=== PATIENT | male | born 1965 | race Caucasian/White ===

== ENCOUNTER 2017-05-16 17:20 | Inpatient (IN) | payer BC ==
[~2017-05-16] VITALS: Ht 177.8 cm; Wt 85.8 kg
[~2017-05-16 17:20] MED LIST: ASPIRIN 81M81 MG/TA2 PO; ATIVAN 0.50.5 MG/TAB PO; CARDIZEM CD 24240 MG PO; LIPITOR 10MG10 MG PO; MULTI VITAMINS1 TAB PO; PRIL40 PO; SYNTHROID0.088 MG/T PO; TAMBOCOR 1100 MG/TAB PO; TIKOSYN0.5 MG PO; TOPROL XL 50MG50 MG PO; XARELTO20 MG PO
[2017-05-17] MEDS ORDERED: OCUVITE ADULT 51 SGL PO (09:56)
[2017-05-17 09:59] LABS: HEMATOCRIT 39.4 % (42.0-52.0); HEMOGLOBIN 13.1 g/dl (13.5-18.0); MEAN CELL VOLUME 83 fl (80.0-100.0); MEAN CORPUSCULAR HEMOGLOBIN 28 pg (27.0-31.0); MEAN CORPUSCULAR HGB CONC 33 g/dl (33.0-37.0); MEAN PLATELET VOLUME 9.9 fl (7.4-10.4); PLATELET COUNT 256 K/mm3 (130-400); RED BLOOD COUNT 4.77 M/mm3 (4.20-5.60); REDCELL DISTRIBUTION WIDTH-CV 13.2 % (11.5-14.5); WHITE BLOOD COUNT 4.3 K/mm3 (4.8-10.8)
[2017-05-17 10:06] LABS: ADJUSTED CALCIUM 9.3 mg/dL (8.4-10.2); BILIRUBIN,TOTAL 0.6 mg/dL (0.0-1.0); CALCIUM 9.3 mg/dL (8.4-10.2); CREATININE, serum 0.81 mg/dL (0.66-1.25); MAGNESIUM 2.1 mg/dL (1.6-2.3); POTASSIUM 4.4 mmol/L (3.4-5.0); TOTAL PROTEIN 6.7 gm/dL (6.4-8.2)
[2017-05-17 10:35] LABS: PROTHROMBIN TIME 10.8 SECONDS (9.7-12.8)
[2017-05-17 11:38] VITALS: BP 103/74; PULSE 62; TEMP 98
[2017-05-17 11:40] VITALS: BP 103/55; PULSE 64; TEMP 98
[2017-05-17 16:00] VITALS: BP 120/90; PULSE 67; TEMP 97
[2017-05-17 20:00] VITALS: BP 126/66; PULSE 66; TEMP 97.9
[2017-05-18] VITALS: BP 106/77; PULSE 65; TEMP 98
[2017-05-18 04:00] VITALS: BP 115/83; PULSE 64; TEMP 98.4
[2017-05-18 05:51] LABS: HEMATOCRIT 41.1 % (42.0-52.0); HEMOGLOBIN 13.7 g/dl (13.5-18.0); MEAN CELL VOLUME 82 fl (80.0-100.0); MEAN CORPUSCULAR HEMOGLOBIN 27 pg (27.0-31.0); MEAN CORPUSCULAR HGB CONC 33 g/dl (33.0-37.0); MEAN PLATELET VOLUME 9.4 fl (7.4-10.4); PLATELET COUNT 239 K/mm3 (130-400); RED BLOOD COUNT 5.01 M/mm3 (4.20-5.60); WHITE BLOOD COUNT 4.5 K/mm3 (4.8-10.8)
[2017-05-18 05:55] LABS: INR 1.1 (0.8-3.0); PROTHROMBIN TIME 12.6 SECONDS (9.7-12.8)
[2017-05-18 06:04] LABS: CREATININE, serum 0.81 mg/dL (0.66-1.25); MAGNESIUM 2.2 mg/dL (1.6-2.3); POTASSIUM 4.1 mmol/L (3.4-5.0)
[2017-05-18 08:00] VITALS: BP 113/90; PULSE 63; TEMP 97.6
[2017-05-18 11:44] VITALS: BP 92/63; PULSE 60; TEMP 96.9
[2017-05-18 16:00] VITALS: BP 105/78; PULSE 65; TEMP 97.6
[2017-05-18 20:00] VITALS: BP 116/83; PULSE 67; TEMP 97.3
[2017-05-19] VITALS: BP 115/86; PULSE 60; TEMP 98.3
[2017-05-19 04:00] VITALS: BP 98/67; PULSE 60; TEMP 97.6
[2017-05-19 05:28] LABS: INR 1.1 (0.8-3.0); PROTHROMBIN TIME 12.6 SECONDS (9.7-12.8)
[2017-05-19 05:34] LABS: CREATININE, serum 0.86 mg/dL (0.66-1.25); POTASSIUM 4.1 mmol/L (3.4-5.0)
[2017-05-19 08:00] VITALS: BP 104/86; PULSE 59; TEMP 97
[2017-05-19] MEDS ORDERED: XARELTO20 MG PO (11:57)
[2017-05-19] MEDS ORDERED: TIKOSYN0.5 MG PO (11:57)
[2017-05-19] MEDS ORDERED: TIKOSYN0.25 MG PO (11:58)
== END 2017-05-19 12:17 | disposition home or self-care (01) | DRG 310 ==
LOC: ICU 05-17 08:04 → MEDICAL 05-17 08:04 → ICU 05-17 14:45 → MEDICAL 05-17 17:19 → ICU 05-19 12:17
PROVIDERS: Internal Medicine Cardiovascular Disease
DX: I48.0 Paroxysmal atrial fibrillation (principal); Z95.2 Presence of prosthetic heart valve; Z95.0 Presence of cardiac pacemaker; G47.33 Obstructive sleep apnea (adult) (pediatric); Z87.891 Personal history of nicotine dependence

== ENCOUNTER 2019-08-12 11:22 | Inpatient (IN) | payer BC ==
[2019-08-12] VITALS (68 sets, daily range): BP systolic 111–118; BP diastolic 61–85; PULSE 60–85; TEMP 97.6–98; O2SAT 95–100
[~2019-08-12] VITALS: Ht 177.8 cm; Wt 90.7 kg
[~2019-08-12 11:22] MED LIST changes: +OCUVITE ADULT 51 SGL PO; +TIKOSYN0.25 MG PO
[2019-08-12] MEDS ORDERED: ASPIRIN 32325 MG/TAB PO (11:46)
[2019-08-12] MEDS ORDERED: ATROVENT INHALE14 GM IH (11:49)
[2019-08-12 12:00] LABS: BASO % 1.1 % (0.0-2.0); EOS # 0.1 (0.0-0.7); EOS % 2.7 % (0-4.0); GRAN # 2.1 (1.4-6.5); GRAN % 55.5 % (42.2-75.2); HEMATOCRIT 41.9 % (42.0-52.0); HEMOGLOBIN 13.6 g/dl (13.5-18.0); LYMPH # 1.1 (1.2-3.4); LYMPH % 30.7 % (20.0-51.0); MEAN CELL VOLUME 85 fl (80.0-100.0); MEAN CORPUSCULAR HEMOGLOBIN 27 pg (27.0-31.0); MEAN CORPUSCULAR HGB CONC 33 g/dl (33.0-37.0); MEAN PLATELET VOLUME 9.2 fl (7.4-10.4); MONO # 0.4 (0.1-0.6); MONO % 9.7 % (1.7-9.3); PLATELET COUNT 270 K/mm3 (130-400); RED BLOOD COUNT 4.96 M/mm3 (4.20-5.60); REDCELL DISTRIBUTION WIDTH-CV 14.8 % (11.5-14.5)
[2019-08-12 12:25] LABS: ALANINE AMINOTRANSFERASE 18 U/L (21-72); ALBUMIN 4.5 gm/dL (3.5-5.0); ALKALINE PHOSPHATASE 75 U/L (50-136); ANION GAP 10 mmol/L (7-16); AST,SGOT 25 U/L (15-37); BILIRUBIN,TOTAL 0.4 mg/dL (0.0-1.0); BLOOD UREA NITROGEN 25 mg/dL (9-20); CALCIUM 9.9 mg/dL (8.4-10.2); CARBON DIOXIDE 26 mmol/L (22-30); CHLORIDE 104 mmol/L (98-107); CREATININE, serum 1.01 (0.66-1.25); GLUCOSE 86 mg/dL (74-106); POTASSIUM 4.4 mmol/L (3.4-5.0); SODIUM 140 mmol/L (137-145); TOTAL PROTEIN 7.5 gm/dL (6.4-8.2)
[2019-08-12 12:41] LABS: INR 0.9 (0.8-3.0); TROPONIN-I < 0.012 ng/mL (0.000-0.035)
[2019-08-12] MEDS ORDERED: ZOLOFT 100MG100 MG PO (15:56)
[2019-08-12] MEDS ORDERED: LINZESS72 MCG PO (15:58)
--- NOTE | 2019-08-12 16:00 | NUR ---
PT AMBULATED FROM STRETCHER TO BED. DENIES PAIN, A&O X4. PT STATES THIS AM HE WAS DIZZY WHEN OUT FOR A WALK. ADDITIONALLY, HE THINKS HIS AFIB STARTED AFTER HAVING TOO MUCH CAFFINE ON 08/10.
--- NOTE | 2019-08-12 19:00 | NUR ---
REPORT GIVEN TO YEMI BRIGGS.
--- NOTE | 2019-08-12 21:28 | NUR ---
Was called by Anuradha BRAGG with [facility] regarding ABG's. Order to decrease FI02 to 30. Call placed to RT Briceño and notified. Pt is now resting comfortably. Will decrease sedation as able.
[2019-08-13] VITALS (142 sets, daily range): BP systolic 112–126; BP diastolic 72–92; PULSE 60–63; TEMP 97.2–98.4; O2SAT 96–100
[2019-08-13 05:36] LABS: EOS # 0.2 (0.0-0.7); EOS % 4.2 % (0-4.0); GRAN # 2.2 (1.4-6.5); GRAN % 56.2 % (42.2-75.2); HEMATOCRIT 38.2 % (42.0-52.0); HEMOGLOBIN 12.2 g/dl (13.5-18.0); LYMPH # 1.1 (1.2-3.4); MEAN CELL VOLUME 85 fl (80.0-100.0); MEAN CORPUSCULAR HEMOGLOBIN 27 pg (27.0-31.0); MEAN CORPUSCULAR HGB CONC 32 g/dl (33.0-37.0); MEAN PLATELET VOLUME 9.4 fl (7.4-10.4); MONO # 0.4 (0.1-0.6); MONO % 9.1 % (1.7-9.3); PLATELET COUNT 238 K/mm3 (130-400); RED BLOOD COUNT 4.51 M/mm3 (4.20-5.60); REDCELL DISTRIBUTION WIDTH-CV 14.8 % (11.5-14.5)
[2019-08-13 05:50] LABS: CALCIUM 8.5 mg/dL (8.4-10.2); CREATININE, serum 0.83 (0.66-1.25); POTASSIUM 4.3 mmol/L (3.4-5.0)
[2019-08-13 06:02] LABS: MAGNESIUM 2.1 mg/dL (1.6-2.3)
--- NOTE | 2019-08-13 10:11 | NUR ---
Initial visit; Patient thanked Office Messenger for looking in on him and offering God's blessings.
--- NOTE | 2019-08-13 13:20 | NUR ---
GAVE REPORT TO YEMI AGUILERA.
--- NOTE | 2019-08-13 18:00 | NUR ---
PT HAD UNEVENTFUL AFTERNOON. NO ISSUES OR CONSERNS VOICED. VITALS HAVE BEEN WNL, NO CONSERNS VOICED FROM LOAD OUT WORKER THIS SHIFT.
--- NOTE | 2019-08-13 20:30 | NUR ---
Patient assessed at this time. Alert and oriented x 4, and able to make needs known. Denies having pain and discomfort. Peripheral IV to left AC flushed. Site is without redness, warmth, swelling, and pain. Denies having SOB and dyspnea. LS CTA. Respirations even and unlabored. Denies chest pain and discomfort. HRR. Telemetry in place-paced. Cap refill < 3 sec. Non-tenting skin turgor. BSAx4. No edema noted. Resting in bed with call light within reach. Voices no questions, needs, or concerns at this time.
[2019-08-14 03:36] VITALS: BP 121/80; PULSE 64; TEMP 97.8
--- NOTE | 2019-08-14 05:11 | NUR ---
Patient has denied having pain and discomfort this shift. Telemetry monitoring remains in place. Denies chest pain and discomfort. HR has been around 60. Voices no questions, needs, or concerns. Resting in bed with eyes closed at this time. Call light is within reach.
[2019-08-14 08:05] VITALS: BP 108/72; PULSE 62
[2019-08-14 08:17] LABS: BASO % 0.8 % (0.0-2.0); EOS # 0.2 (0.0-0.7); EOS % 4.8 % (0-4.0); GRAN # 2.1 (1.4-6.5); HEMATOCRIT 41.2 % (42.0-52.0); HEMOGLOBIN 13.5 g/dl (13.5-18.0); LYMPH % 26.8 % (20.0-51.0); MEAN CELL VOLUME 85 fl (80.0-100.0); MEAN CORPUSCULAR HEMOGLOBIN 28 pg (27.0-31.0); MEAN CORPUSCULAR HGB CONC 33 g/dl (33.0-37.0); MEAN PLATELET VOLUME 9.2 fl (7.4-10.4); MONO # 0.3 (0.1-0.6); MONO % 7.3 % (1.7-9.3); PLATELET COUNT 258 K/mm3 (130-400); RED BLOOD COUNT 4.87 M/mm3 (4.20-5.60); REDCELL DISTRIBUTION WIDTH-CV 14.6 % (11.5-14.5)
[2019-08-14 08:26] LABS: CALCIUM 9.1 mg/dL (8.4-10.2); CREATININE, serum 0.8 (0.66-1.25); POTASSIUM 4.3 mmol/L (3.4-5.0)
[2019-08-14 08:30] LABS: INR 0.9 (0.8-3.0); PROTHROMBIN TIME 10.8 SECONDS (9.7-12.8)
--- NOTE | 2019-08-14 09:29 | NUR ---
Assessment completed, alert/oriented, vital signs stable, denies chest pain or discomfort, heart RRR/ paced on tele., Qtc 483 this morning/ Sotalol dose given, patient is hopeful to discharge home once Cardiology makes their rounds, present, denies other needs at this time
--- NOTE | 2019-08-14 10:49 | NUR ---
UCHE met with the patient and the patient's family to discuss discharge plan. The patient lives in [place] with his , Lisa (ph#[phone]). He reports independence with ADLs and does not have any DME. The patient's PCP is Dr. Ambar Clay in [place] and he receives his medications at a [facility] in [place]. He reports no difficulties obtaining his meds. The patient does not have advanced directives in EMR, but he states that he does have them completed. He states that his DPOA-HC is his son, Scot Costa. The patient plans to return home with his upon discharge. No additional needs at this time.
[2019-08-14 11:38] VITALS: BP 121/80; PULSE 70; TEMP 98.1
[2019-08-14] MEDS ORDERED: BETAPACE 80MG80 MG PO (12:02)
[2019-08-14] MEDS ORDERED: COUMADIN 5MG5 MG/TAB PO (12:02)
--- NOTE | 2019-08-14 13:46 | NUR ---
Discharge instructions reviewed with patient and his , instructed to follow up with Cardiology and PCP as we have scheduled, isntructed to get Pt-INR check with PCP on 08/16, Coumadin and Sotalol scripts sent to pharmacy for him, education given on these meds, IV and tele removed, he is ambulatory and leaving with his / I escorted them to the door
== END 2019-08-14 13:48 | disposition home or self-care (01) | DRG 310 ==
LOC: COL.ER 11:22 → ICU 14:09 → MEDICAL 08-13 13:41
PROVIDERS: Emergency Medicine; Nurse Practitioner Family; ADMIT Student in an Organized Health Care Education/Training Program
DX: I48.20 Chronic atrial fibrillation, unspecified (principal); D72.819 Decreased white blood cell count, unspecified; E03.9 Hypothyroidism, unspecified; R12 Heartburn; F41.9 Anxiety disorder, unspecified; Z95.0 Presence of cardiac pacemaker; Z95.3 Presence of xenogenic heart valve; Z79.82 Long term (current) use of aspirin; Z79.890 Hormone replacement therapy; Z87.891 Personal history of nicotine dependence
CPT/HCPCS: OP; 99232-AI; 99239; J1650; J7030

== ENCOUNTER 2021-03-30 17:36 | Inpatient (IN) | payer BC ==
[2006-03-11 16:13] VITALS: BP 104/72
[~2021-03-30] VITALS: Ht 177.8 cm; Wt 90.9 kg
[~2021-03-30 17:36] MED LIST changes: +ASPIRIN 32325 MG/TAB PO; +ATROVENT INHALE14 GM IH; +BETAPACE 80MG80 MG PO; +COUMADIN 5MG5 MG/TAB PO; +LINZESS72 MCG PO; +ZOLOFT 100MG100 MG PO
[2021-03-30 18:09] LABS: BASO # 0.1 (0.0-0.2); BASO % 0.9 % (0.0-2.0); EOS # 0.2 (0.0-0.7); EOS % 3.1 % (0-4.0); GRAN # 3.4 (1.4-6.5); GRAN % 60.1 % (42.2-75.2); HEMATOCRIT 41.1 % (42.0-52.0); HEMOGLOBIN 13.8 g/dl (13.5-18.0); LYMPH # 1.6 (1.2-3.4); LYMPH % 27.8 % (20.0-51.0); MEAN CELL VOLUME 84 fl (80.0-100.0); MEAN CORPUSCULAR HEMOGLOBIN 28 pg (27.0-31.0); MEAN CORPUSCULAR HGB CONC 34 g/dl (33.0-37.0); MEAN PLATELET VOLUME 9.1 fl (7.4-10.4); MONO # 0.5 (0.1-0.6); MONO % 7.9 % (1.7-9.3); PLATELET COUNT 294 K/mm3 (130-400); RED BLOOD COUNT 4.88 M/mm3 (4.20-5.60); REDCELL DISTRIBUTION WIDTH-CV 12.9 % (11.5-14.5)
[2021-03-30] MEDS ORDERED: ASPIRIN 32325 MG/TAB PO (18:13)
[2021-03-30 18:19] LABS: ALANINE AMINOTRANSFERASE 29 U/L (4-49); ALBUMIN 4.2 gm/dL (3.5-5.0); ALKALINE PHOSPHATASE 68 U/L (50-136); ANION GAP 7 mmol/L (7-16); AST,SGOT 26 U/L (15-37); BILIRUBIN,TOTAL 0.4 mg/dL (0.0-1.0); BLOOD UREA NITROGEN 26 mg/dL (9-20); CALCIUM 9.3 mg/dL (8.4-10.2); CARBON DIOXIDE 22 mmol/L (22-30); CHLORIDE 106 mmol/L (98-107); GLUCOSE 139 mg/dL (74-106); POTASSIUM 3.6 mmol/L (3.4-5.0); SODIUM 135 mmol/L (137-145)
[2021-03-30 18:20] LABS: INR 0.9 (0.8-3.0); PROTHROMBIN TIME 10.2 SECONDS (9.7-12.8)
[2021-03-30 18:22] LABS: PARTIAL THROMBOPLASTIN TIME 27.8 SECONDS (26.0-37.0)
[2021-03-30 18:30] LABS: TROPONIN-I < 0.012 ng/mL (0.000-0.035)
[2021-03-30 20:30] VITALS: BP 135/104; PULSE 94; TEMP 98.1
[2021-03-30 23:50] VITALS: BP 111/70; PULSE 64; TEMP 97.7
[2021-03-31] VITALS (14 sets, daily range): BP systolic 112–122; BP diastolic 68–88; PULSE 59–74; TEMP 97.6–98
[2021-03-31] MEDS ORDERED: LIPITOR 10MG10 MG PO (03:42)
[2021-03-31 06:28] LABS: BASO % 1.2 % (0.0-2.0); EOS # 0.2 (0.0-0.7); EOS % 5.2 % (0-4.0); GRAN # 1.5 (1.4-6.5); LYMPH # 1.4 (1.2-3.4); LYMPH % 40.6 % (20.0-51.0); MEAN CELL VOLUME 85 fl (80.0-100.0); MEAN CORPUSCULAR HGB CONC 33 g/dl (33.0-37.0); MEAN PLATELET VOLUME 9.3 fl (7.4-10.4); MONO # 0.3 (0.1-0.6); PLATELET COUNT 246 K/mm3 (130-400); RED BLOOD COUNT 4.21 M/mm3 (4.20-5.60)
[2021-03-31 06:41] LABS: HEMATOCRIT 35.9 % (42.0-52.0); HEMOGLOBIN 11.8 g/dl (13.5-18.0); MEAN CORPUSCULAR HEMOGLOBIN 28 pg (27.0-31.0)
--- NOTE | 2021-03-31 06:43 | NUR ---
ROYA JOHNSON NOTIFIED OF HEMOGLOBIN LEVEL OF 11.8.
[2021-03-31 06:45] LABS: CALCIUM 8.6 mg/dL (8.4-10.2); CREATININE, serum 0.75 (0.66-1.25); POTASSIUM 3.8 mmol/L (3.4-5.0)
--- NOTE | 2021-03-31 11:42 | NUR ---
Initial visit; Patient and his thanked Personnel Associate for looking in on him and offering God's blessings and for being available for so many people.
--- NOTE | 2021-03-31 18:06 | NUR ---
Patient resting in bed, at bedside. Patient is alert and oriented, answers questions appropriately. Patient is independent in his room, and denies pain. Telemetry in place per order. Call light within reach.
--- NOTE | 2021-04-01 01:04 | NUR ---
NO NEW ISSUES NOTED OR REPORTED BY PATIENT THROUGHOUT THE SHIFT.
[2021-04-01 04:11] VITALS: BP 123/78; PULSE 63; TEMP 97.6
[2021-04-01 07:22] LABS: BASO % 1.1 % (0.0-2.0); EOS # 0.2 (0.0-0.7); EOS % 4.3 % (0-4.0); GRAN % 54.3 % (42.2-75.2); HEMATOCRIT 38.9 % (42.0-52.0); HEMOGLOBIN 12.8 g/dl (13.5-18.0); LYMPH # 1.2 (1.2-3.4); LYMPH % 31.8 % (20.0-51.0); MEAN CELL VOLUME 86 fl (80.0-100.0); MEAN CORPUSCULAR HEMOGLOBIN 28 pg (27.0-31.0); MEAN CORPUSCULAR HGB CONC 33 g/dl (33.0-37.0); MONO # 0.3 (0.1-0.6); MONO % 8.2 % (1.7-9.3); PLATELET COUNT 253 K/mm3 (130-400); RED BLOOD COUNT 4.54 M/mm3 (4.20-5.60); REDCELL DISTRIBUTION WIDTH-CV 12.9 % (11.5-14.5)
[2021-04-01 07:50] LABS: CALCIUM 9.1 mg/dL (8.4-10.2); CREATININE, serum 0.78 (0.66-1.25); POTASSIUM 4.2 mmol/L (3.4-5.0)
--- NOTE | 2021-04-01 08:00 | NUR ---
Patient resting in bed eating breakfast at this time. Patient is alert and oriented, answers questions appropriately. Patient denies pain or needs, call light within reach.
[2021-04-01 08:14] VITALS: BP 138/82; PULSE 66; TEMP 97.8
[2021-04-01 09:16] LABS: PROTHROMBIN TIME 10.9 SECONDS (9.7-12.8)
--- NOTE | 2021-04-01 09:22 | NUR ---
health outreach worker met with the pt who stated his preference to return home once medically stable. The pt lives at home with his , Tomeka (ph# [phone]). The pt has adult children. The pt is independent on all ADLS, uses a CPAP machine at home and no other DME. The pt pcp is Ambar Baez, in [place], [place] and the pt recieves his medication from [facility] on [place], [place]. Pt reports no difficulties obtaining his meds. The pt informed Sw that he does have a DPOA-HC, however he was not aware that he needed to bring it in. No other needs stated at this time. Sw to await further recommendations and follow up as needed. Discharge Plan: Home with .
[2021-04-01] MEDS ORDERED: BETAPACE 80MG80 MG PO (10:55)
--- NOTE | 2021-04-01 11:40 | NUR ---
Discharge teaching completed. Discussed discharge appointments, discharge instructions, and medications. Patient verbalized understanding. INT removed, catheter intact, hemostasis achieved. Patient escorted to ED entrance where he entered a private vehicle.
== END 2021-04-01 11:40 | disposition home or self-care (01) | DRG 309 ==
LOC: COL.ER 17:36 → SURG 18:33
PROVIDERS: Family Medicine; Student in an Organized Health Care Education/Training Program; ADMIT Hospitalist
PROC: B24BZZ4 Ultrasonography of Heart with Aorta, Transesophageal (ICD-10-PCS; principal; 2021-03-31)
DX: I48.91 Unspecified atrial fibrillation (principal); E87.1 Hypo-osmolality and hyponatremia; E03.9 Hypothyroidism, unspecified; D64.9 Anemia, unspecified; E78.5 Hyperlipidemia, unspecified; F41.9 Anxiety disorder, unspecified; F32.9 Major depressive disorder, single episode, unspecified; Z95.2 Presence of prosthetic heart valve
CPT/HCPCS: 99223-AI; 99232-AI; 99239; G0378; J1644; J2704; J7030; J7120